=== PATIENT | female | born 1965 | race Caucasian/White ===

== ENCOUNTER → 2020-06-03 16:47 | Outpatient (CLI) | payer OTHER, MEDICAID, SELFPAY | PROVIDERS: PCP Internal Medicine; Visit Provider Registered Nurse | DX: R39.15 Urgency of urination (principal) | CPT/HCPCS: 87086 ==

== ENCOUNTER → 2020-06-03 16:59 | Outpatient (CLI) | payer OTHER, MEDICAID, SELFPAY ==
[2020-06-03 17:49] LABS: Add Manual Diff / Slide Review NO; Basophils Absolute Auto 100 /uL (0-100); Basophils Percent Auto 1.1 % (0-2); Eosinophils Absolute Auto 400 /uL (0-450); Eosinophils Percent Auto 2.9 % (2-4); Hematocrit 44.2 % (36-46); Hemoglobin 14.9 g/dL (12.0-16.0); Lymphocytes Absolute Auto 3000 /uL (1100-4500); Lymphocytes Percent Auto 23.4 % (25-40); Mean Corpuscular HGB Conc 33.8 % (30-36); Mean Corpuscular Hemoglobin 30.4 PG (26-34); Mean Corpuscular Volume 90.1 fL (80-100); Monocytes Absolute Auto 800 /uL (0-900); Monocytes Percent Auto 6.1 % (3-14); Neutrophils Absolute Auto 8600 /uL (1500-7000); Neutrophils Percent Auto 66.5 % (50-75); Platelet Count 315 X10^3/uL (150-400); Red Cell Distribution Width 13.4 % (11.6-14.8); White Blood Cell Count 12.9 X10^3/uL (4.5-11.0)
[2020-06-03 18:05] LABS: Alanine Aminotransferase 45 IU/L (<35); Albumin 4.4 g/dL (3.5-5.0); Albumin Globulin Ratio 1.2 (1.0-2.8); Alkaline Phosphatase 83 U/L (38-126); Aspartate Aminotransferase 36 IU/L (14-36); BUN Creatinine Ratio 18.8 (6-22); Bilirubin Total 0.6 mg/dL (0.2-1.3); Blood Urea Nitrogen 15 mg/dL (7-17); Calcium 10.2 mg/dL (8.4-10.2); Carbon Dioxide 26 mmol/L (22-32); Chloride 102 mmol/L (98-107); Estimated Glomerular Filt Rate > 60.0 mL/min (>60); Globulin 3.7 g/dL (1.7-4.1); Glucose 100 mg/dL (70-100); HEMOLYSIS < 15 (0-50); Potassium 4.3 mmol/L (3.4-5.1); Sodium 136 mmol/L (137-145); Total Protein 8.1 g/dL (6.3-8.2)
== END ==
PROVIDERS: PCP Registered Nurse; Referring Provider Registered Nurse; Visit Provider Registered Nurse
DX: R39.15 Urgency of urination (principal)
CPT/HCPCS: 36415; 80053; 85025; 87086

== ENCOUNTER → 2020-06-09 09:58 | Outpatient (CLI) | payer OTHER, MEDICAID, SELFPAY ==
--- NOTE | 2020-06-09 10:24 | DI.CT.S_ITS ---
PROCEDURE: CT ABDOMEN PELVIS W CON INDICATIONS: abdominal pain TECHNIQUE: After the administration of intravenous contrast, 5 mm thick sections acquired from the diaphragm to the symphysis. 5 mm coronal and sagittal reformats were acquired. For radiation dose reduction, the following was used: automated exposure control, adjustment of mA and/or kV according to patient size. COMPARISON: , , ABDOMEN COMPLETE, 09/11/2016, 21:59. FINDINGS: Image quality: Excellent. ABDOMEN: Lung bases: No focal infiltrates are seen. Calcified granulomas can be seen within the lung bases. Heart size is normal. Solid organs: Liver is normal in size and enhancement. Diffuse fatty liver infiltration is noted. Gallbladder wall is not thickened. Biliary system is non dilated. Pancreas enhances normally. Spleen is normal in size and enhancement. No adrenal nodules. Kidneys demonstrate normal size and enhancement, without hydronephrosis. Peritoneum and bowel: Bowel loops demonstrate normal wall thickness and caliber. No free fluid or air. There is a moderate amount of stool seen within the colon. Nodes and vessels: No retroperitoneal or mesenteric adenopathy by size criteria. Aorta and inferior vena cava are normal in size. Miscellaneous: A mild periumbilical hernia is seen, containing fat. PELVIS: Genitourinary: Bladder wall thickness is normal. Pelvic phleboliths are seen, which are separate from the distal ureters. This patient is status post hysterectomy. No adnexal masses are seen. Miscellaneous: No inguinal hernias or adenopathy. Bones: No suspicious bony lesions. No vertebral body compression fractures. Focal L5-S1 degenerative change is seen. Milder degenerative changes are seen elsewhere. IMPRESSION: There is a moderate amount of stool seen within the colon. Please correlate with an underlying history of constipation. Incidental note is made of: Prior granulomatous exposure. Fatty liver infiltration Fat containing periumbilical hernia Hysterectomy L5-S1 degenerative change Dictated by: Giles Messer M.D. on 06/09/2020 at 9:32 Approved by: Giles Messer M.D. on 06/09/2020 at 9:35
== END ==
PROVIDERS: PCP Registered Nurse; Referring Provider Registered Nurse; Visit Provider Registered Nurse
DX: R10.9 Unspecified abdominal pain (principal); R39.15 Urgency of urination; K76.0 Fatty (change of) liver, not elsewhere classified; K42.9 Umbilical hernia without obstruction or gangrene; M47.817 Spondylosis without myelopathy or radiculopathy, lumbosacral region; Z90.710 Acquired absence of both cervix and uterus
CPT/HCPCS: 74177; Q9967

== ENCOUNTER → 2020-06-23 10:02 | Outpatient (CLI) | payer OTHER, MEDICAID, SELFPAY ==
[2020-06-25 06:16] LABS: COVID19 Sendout Not Detected (Not Detect)
== END ==
PROVIDERS: PCP Registered Nurse; Visit Provider Physician Assistant
DX: Z11.59 Encounter for screening for other viral diseases (principal)
CPT/HCPCS: 87635

== ENCOUNTER → 2020-12-22 09:23 | Outpatient (CLI) | payer OTHER, MEDICAID, SELFPAY ==
[2020-12-22 10:22] LABS: Add Manual Diff / Slide Review NO; Basophils Absolute Auto 100 /uL (0-100); Basophils Percent Auto 0.9 % (0-2); Eosinophils Absolute Auto 300 /uL (0-450); Eosinophils Percent Auto 3.1 % (2-4); Hematocrit 43.6 % (36-46); Hemoglobin 14.7 g/dL (12.0-16.0); Lymphocytes Absolute Auto 2200 /uL (1100-4500); Lymphocytes Percent Auto 25.7 % (25-40); Mean Corpuscular HGB Conc 33.8 % (30-36); Mean Corpuscular Hemoglobin 30.4 PG (26-34); Monocytes Absolute Auto 600 /uL (0-900); Monocytes Percent Auto 7.1 % (3-14); Neutrophils Absolute Auto 5400 /uL (1500-7000); Neutrophils Percent Auto 63.2 % (50-75); Platelet Count 257 X10^3/uL (150-400); Red Blood Cell Count 4.84 X10^6/uL (4.0-5.2); Red Cell Distribution Width 13.9 % (11.6-14.8); White Blood Cell Count 8.5 X10^3/uL (4.5-11.0)
[2020-12-22 10:47] LABS: Alanine Aminotransferase 35 IU/L (<35); Albumin 4.3 g/dL (3.5-5.0); Albumin Globulin Ratio 1.3 (1.0-2.8); Alkaline Phosphatase 89 U/L (38-126); Aspartate Aminotransferase 29 IU/L (14-36); BUN Creatinine Ratio 22.5 (6-22); Bilirubin Total 0.5 mg/dL (0.2-1.3); Blood Urea Nitrogen 16 mg/dL (7-17); Calcium 9.5 mg/dL (8.4-10.2); Carbon Dioxide 26 mmol/L (22-32); Chloride 106 mmol/L (98-107); Estimated Glomerular Filt Rate > 60.0 mL/min (>60); Globulin 3.2 g/dL (1.7-4.1); Glucose 139 mg/dL (70-100); HDL Cholesterol 44 mg/dL (40-60); HEMOLYSIS 21 (0-50); Potassium 4.5 mmol/L (3.4-5.1); Sodium 137 mmol/L (137-145); Total Protein 7.5 g/dL (6.3-8.2); Triglycerides 395 mg/dL (35-150)
[2020-12-22 10:58] LABS: Cholesterol 353 mg/dL (140-199); LDL Cholesterol Calculated 230 mg/dL (<100)
[2020-12-22 11:09] LABS: Thyroid Stimulating Hormone 4.15 uIU/mL (0.47-4.68)
== END ==
PROVIDERS: PCP Acupuncturist; Referring Provider Acupuncturist; Visit Provider Acupuncturist
DX: Z00.00 Encounter for general adult medical examination without abnormal findings (principal); R53.83 Other fatigue
CPT/HCPCS: 36415; 80053; 80061; 84443; 85025

== ENCOUNTER → 2021-01-06 08:49 | Outpatient (CLI) | payer OTHER, MEDICAID, SELFPAY ==
--- NOTE | 2021-01-06 | DI.MG.S_ITS ---
BILATERAL DIGITAL DIAGNOSTIC MAMMOGRAM 3D/2D: 01/06/2021 CLINICAL: Bilateral breast pain and lumps. Comparison is made to exams dated: 10/31/2017 ultrasound, 04/28/2017 ultrasound, 04/21/2017 mammogram - [facility], and 04/08/2017 mammogram - [facility]. There are scattered fibroglandular elements in both breasts. No significant masses, calcifications, or other findings are seen in either breast. Specifically, no finding to explain the patient's bilateral diffuse and focal areas of pain. IMPRESSION: INCOMPLETE: NEEDS ADDITIONAL IMAGING EVALUATION There is no abnormality seen in either breast to correspond with the diffuse pain. There is no abnormality seen in the right breast to correspond with the pain at 3 o'clock. There is no abnormality seen in the left breast to correspond with the pain in the lower outer quadrant. Bilateral breast ultrasound is recommended for full evaluation of these areas. This was performed immediately following this exam. This exam was interpreted at Station ID: [id number]. NOTE: For mammograms, a report in lay terms will be sent to the patient. Approximately 15% of breast malignancies will not be visualized mammographically. In the management of a palpable breast mass, a negative mammogram must not discourage biopsy of a clinically suspicious lesion. Electronically Signed By: Pamela givens/:01/06/2021 09:48:27 ACR BI-RADS Category 0: Incomplete [id number]
--- NOTE | 2021-01-06 10:41 | DI.US.S_ITS ---
Date: 01/06/2021 10:41 At the request of: LILI ARMANDO Procedure: US breast RT limited ULTRASOUND OF RIGHT BREAST: 01/06/2021 CLINICAL: Patient returns today to evaluate a focal asymmetry in the right breast and right breast pain. Comparison is made to exams dated: 01/06/2021 mammogram, 10/31/2017 ultrasound, 04/28/2017 ultrasound, 04/21/2017 mammogram - [facility], and 04/08/2017 mammogram - [facility]. Color flow ultrasound of the right breast was performed. Sexton scale images of the real-time examination were reviewed. There is a 0.5 cm x 0.3 cm x 0.2 cm irregular cluster of microcysts in the right breast at 6 o'clock posterior depth 6 cm from the nipple. These abnormalities are not significantly changed over 3 years. Color flow imaging demonstrates that there is no vascularity present. There also is a 3 mm cyst in the right breast at 3 o'clock anterior depth. This cyst is hypoechoic. This is in the area of pain, but likely correlates as an incidental finding only. Color flow imaging demonstrates that there is no vascularity present. IMPRESSION: BENIGN There is no sonographic evidence of malignancy. The 0.5 cm cluster of microcysts in the right breast at 6 o'clock posterior depth has shown moth exterminator stability and therefore is benign. The 3 mm incidental cyst in the right breast at 3 o'clock appears benign. Return to annual right breast mammogram screening schedule is recommended. Findings and recommendations were conveyed to the patient at time of exam. This exam was interpreted at Station ID: [id number]. Electronically Signed By: Pamela givens/:01/06/2021 13:49:36 letter sent: Normal Exam Ultrasound BI-RADS: 2 Benign
--- NOTE | 2021-01-06 10:42 | DI.US.S_ITS ---
Date: 01/06/2021 10:42 At the request of: LILI ROBERTS Procedure: US breast LT limited LIMITED ULTRASOUND OF LEFT BREAST: 01/06/2021 CLINICAL: Focal left breast pain. Comparison is made to exams dated: 01/06/2021 mammogram, 04/21/2017 mammogram - [facility], and 04/08/2017 mammogram - [facility]. Color flow ultrasound of the left breast was performed. Sexton scale images of the real-time examination were reviewed. There is a 4 mm cluster of irregular microcysts in the left breast at 7 o'clock middle depth. This correlates as an incidental finding. There are related micro calcifications. Color flow imaging demonstrates that there is no vascularity present. There also is a 0.5 cm x 0.7 cm x 0.5 cm round cluster of microcysts in the left breast at 9 o'clock anterior depth 3 cm from the nipple. This cluster of round micro cysts is hypoechoic. Color flow imaging demonstrates that there is no vascularity present. No other findings that would explain the patient's inner lower quadrant breast pain. IMPRESSION: PROBABLY BENIGN The 4 mm cluster of microcysts in the left breast at 7 o'clock middle depth is probably benign. The 0.7 cm cluster of microcysts in the left breast at 9 o'clock anterior depth is probably benign. A follow-up left ultrasound in 6 months is recommended to demonstrate stability. Findings and recommendations were conveyed to the patient at time of exam. This exam was interpreted at Station ID: [id number]. Electronically Signed By: Pamela givens/:01/06/2021 13:55:08 letter sent: Followup Recommended Ultrasound BI-RADS: 3 Probably benign
== END ==
PROVIDERS: PCP Acupuncturist; Referring Provider Naturopath; Visit Provider Naturopath
DX: R92.8 Other abnormal and inconclusive findings on diagnostic imaging of breast (principal); N64.4 Mastodynia; N60.12 Diffuse cystic mastopathy of left breast; N60.11 Diffuse cystic mastopathy of right breast
CPT/HCPCS: 76642; 77066; G0279

== ENCOUNTER 2021-05-10 14:15 | Emergency (ER) | payer OTHER, MEDICAID, SELFPAY ==
[2021-05-10 14:25] VITALS: BP 144/105; PULSE 122; RESP 18; TEMP 36.8; O2SAT 98; BMI 33.4
--- NOTE | 2021-05-10 14:57 | ED_ITS ---
HPI - General Adult General Chief complaint: Abdominal Pain Stated complaint: SEVERE PELVIC/LOW BACK PAIN Time Seen by Provider: 05/10/21 14:35 Source: patient Mode of arrival: Ambulatory History of Present Illness HPI narrative: Patient is a 55-year-old female here for evaluation of bilateral lower abdominal discomfort. States that it started a couple days ago. She was sitting on the couch when it started it was a gradual onset but it is now worsened since that. No urinary symptoms. No change in bowel habits. Has had a total hysterectomy to include her ovaries. Has had severe nausea but no vomiting. Never any pain like this in the past. Took some Tylenol and Flexeril last evening without any improvement. She now states that is radiating to her lower back. Related Data Home Medications Medication Instructions Recorded Confirmed diphenhydramine HCl 25 mg capsule 25 mg PO BEDTIME 06/03/20 06/12/20 (NightTime Sleep Aid (diphenhydramine)) nutritional supplement-fiber oral each PO 06/03/20 06/12/20 liquid Previous Rx's Medication Instructions Recorded ondansetron 4 mg disintegrating 4 mg PO Q6H PRN #14 tab 05/10/21 tablet oxycodone-acetaminophen 5 mg-325 1 tab PO Q4-6H PRN #10 tab 05/10/21 mg tablet Allergies Allergy/AdvReac Type Severity Reaction Status Date / Time latex [LATEX] Allergy Intermediate RASH Verified 05/10/21 14:29 codeine [CODEINE] AdvReac Intermediate ABD PAIN Verified 05/10/21 14:29 acetaminophen [From VICODIN] AdvReac Mild NAUSEA Verified 05/10/21 14:29 hydrocodone [From VICODIN] AdvReac Mild NAUSEA Verified 05/10/21 14:29 Review of Systems Constitutional Comments: No fevers ENT Ears, Nose, Mouth, and Throat: Reports system reviewed and no additional complaints, except as documented Cardiovascular Comments: No chest pain Respiratory Comments: No shortness of breath Gastrointestinal Gastrointestinal: Reports as per HPI Genitourinary Comments: No urinary symptoms Musculoskeletal Comments: Back pain Integumentary/Breasts Comments: No rashes Neurologic Neurologic: Reports system reviewed and no additional complaints, except as documented Psychiatric Psychiatric: Reports system reviewed and no additional complaints, except as documented Endocrine Endocrine: Reports system reviewed and no additional complaints, except as documented Hematologic/Lymphatic On Anticoagulants: No Allergic/Immunologic Allergic/Immunologic: Reports system reviewed and no additional complaints, except as documented Patient History Medical History (Updated 05/10/21 @ 17:51 by Abilio Sue DO) Cervical spine disease (~1985) Chicken pox (~1998) Chronic back pain (~1985) Headache (~2011) Irregular menstrual cycle (~2015) Measles (~1969) MRSA (methicillin resistant Staphylococcus aureus) (~2003) Musculoskeletal disorder (~2011) Shoulder pain (~2011) Skin problem (~2011) Vision disorder Surgical History Anesthesia History of carpal tunnel release (~1985) History of carpal tunnel repair History of tonsillectomy Ovarian cyst (~1997) Status post bilateral salpingo-oophorectomy (BSO) (07/18/17) Status post cervical spinal fusion (~2012) Status post laparoscopic supracervical hysterectomy (07/18/17) Family History Father Heart disease Hypertension High cholesterol Stroke Mother Cancer Diabetes mellitus Family/Other Thyroid disease Grandfather No problems noted. Grandmother No problems noted. Grandfather No problems noted. Grandmother No problems noted. Sister Pacemaker Social History pets and animals: Yes education level: college occupational status: employed seatbelt use: always helmet use: Yes water heater temp set < 120 deg: Yes working smoke detector in home: Yes fire extinguisher in home: Yes carbon monox detector in home: Yes firearms in home: Yes firearms unloaded and locked: Yes Smoking Status: Current every day smoker alcohol intake: current substance use type: does not use during the past year weight has: other well-balanced diet: daily or most days daily servings fruits/ve-4 caffeine: Yes (1-2 caffeine drinks per day) eating out: other frequency: 5-6 times per week duration: 30-45 minutes/day Smoking Status: Current every day smoker tobacco type: cigarettes alcohol intake frequency: a few times a week Substance Use Type: does not use Exam Initial Vital Signs Initial Vital Signs: Vital Signs Temperature 98.2 F 05/10/21 14:25 Pulse Rate 122 H 05/10/21 14:25 Respiratory Rate 18 05/10/21 14:25 Blood Pressure 144/105 H 05/10/21 14:25 Pulse Oximetry 98 05/10/21 14:25 Const General: cooperative and healthy appearing HENMD Head: normal to inspection and normocephalic Eyes General: appearance normal, both eyes and all related structures Resp Effort & Inspection: normal respiratory effort Auscultation: clear to auscultation bilaterally Cardio Rate: regular rate Rhythm: regular rhythm GI Inspection: normal to inspection Skin General: no rashes or lesions noted Neuro General: patient alert, patient awake, patient oriented x3 and moves all extremities Extrem General: normal to inspection and capillary refill normal Psych Appearance: grossly normal and well kempt Course Orders Ordered: ED Orders 05/10/21 14:54 Urine Microscopic Stat 05/10/21 14:58 CT abdomen pelvis w con Stat 05/10/21 15:25 Complete Blood Count AUTO DIFF Stat Comprehensive Metabolic Panel Stat Lipase Stat Discontinued Medications Sodium Chloride (Normal Saline 0.9%) 1,000 mls @ 1,000 mls/hr IV BOLUS ONE Stop: 05/10/21 15:34 Last Infusion: 05/10/21 16:37 Dose: 0 mls/hr Documented by: Admin: 05/10/21 15:13 Dose: 1,000 mls/hr Documented by: HU Morphine Sulfate (Morphine 4 Mg/Ml Inj) 4 mg IV NOW ONE Stop: 05/10/21 14:58 Last Admin: 05/10/21 15:13 Dose: 4 mg Documented by: HU Morphine Sulfate (Morphine 4 Mg/Ml Inj) 4 mg IV NOW ONE Stop: 05/10/21 16:37 Last Admin: 05/10/21 16:43 Dose: 4 mg Documented by: HU Ondansetron HCl (Ondansetron 4 Mg/2 Ml Inj) 4 mg IV NOW ONE Stop: 05/10/21 14:58 Last Admin: 05/10/21 15:13 Dose: 4 mg Documented by: HU Ondansetron HCl (Ondansetron 4 Mg Odt Prepack) 1 bottle MISC SEEINSTR ONE Stop: 05/10/21 17:34 Oxycodone/Acetaminophen (Oxycodone/Apap 5/325 Prepack) 1 bottle MISC SEEINSTR ONE Stop: 05/10/21 17:34 Vital Signs Vital signs: Vital Signs - 8 hr 05/10/21 14:25 05/10/21 15:46 05/10/21 16:09 Temperature 98.2 F Pulse Rate 122 H 88 86 Respiratory Rate 18 18 Blood Pressure 144/105 H 155/92 H Pulse Oximetry 98 97 99 05/10/21 16:30 Temperature Pulse Rate 84 Respiratory Rate Blood Pressure Pulse Oximetry 99 Medical Decision Making Lab Data Lab results reviewed: Yes I reviewed the patient's lab results. Result diagrams: 05/10/21 15:25 05/10/21 15:25 Labs: Lab Results 05/10/21 05/10/21 05/10/21 Range/Units 14:54 15:25 15:25 WBC 16.5 H (4.5-11.0) X10^3/uL RBC 4.93 (4.0-5.2) X10^6/uL Hgb 14.8 (12.0-16.0) g/dL Hct 44.7 (36-46) % MCV 90.8 (80-100) fL MCH 30.1 (26-34) PG MCHC 33.1 (30-36) % RDW 13.4 (11.6-14.8) % Plt Count 272 (150-400) X10^3/uL Neut % (Auto) 76.6 H (50-75) % Lymph % (Auto) 14.9 L (25-40) % [place] % (Auto) 7.0 (3-14) % Eos % (Auto) 0.9 L (2-4) % Baso % (Auto) 0.6 (0-2) % Neut # (Auto) 18288 H (4555-9942) /uL Lymph # (Auto) 2500 (1477-0221) /uL [place] # (Auto) 1200 H (0-900) /uL Eos # (Auto) 100 (0-450) /uL Baso # (Auto) 100 (0-100) /uL Sodium 139 (137-145) mmol/L Potassium 4.5 (3.4-5.1) mmol/L Chloride 104 (98-107) mmol/L Carbon Dioxide 28 (22-32) mmol/L BUN 16 (7-17) mg/dL Creatinine 0.92 (0.52-1.04) mg/dL Estimated GFR > 60.0 (>60) mL/min BUN/Creatinine Ratio 17.4 (6-22) Glucose 113 H (70-100) mg/dL Calcium 9.9 (8.4-10.2) mg/dL Total Bilirubin 0.5 (0.2-1.3) mg/dL AST 30 (14-36) IU/L ALT 32 (<35) IU/L Alkaline Phosphatase 108 (38-126) U/L Total Protein 8.0 (6.3-8.2) g/dL Albumin 4.4 (3.5-5.0) g/dL Globulin 3.6 (1.7-4.1) g/dL Albumin/Globulin Ratio 1.2 (1.0-2.8) Lipase 127 (23-300) U/L Urine RBC None seen (0-5/HPF) Urine WBC 0-1/hpf (0-5/HPF) Ur Squamous Epith Cells 0-1 /hpf (0-5/HPF) Urine Bacteria None seen (None) Ur Culture Indicated? Cult not indicated Urine Dip Bedside Urine Glucose Negative Bedside Urine Bilirubin - Negative Bedside Urine Ketone - Negative Urine Specific [place] 1.010 Bedside Urine Occult Blood - Negative Bedside Urine pH 6.0 Bedside Urine Protein +/- 15 Bedside Urine Urobilinogen - Negative Bedside Urine Nitrite - Negative Bedside Urine Leukocytes - Negative Esterase Point of care testing: Urine Dip Bedside Urine Glucose Negative Bedside Urine Bilirubin - Negative Bedside Urine Ketone - Negative Urine Specific [place] 1.010 Bedside Urine Occult Blood - Negative Bedside Urine pH 6.0 Bedside Urine Protein +/- 15 Bedside Urine Urobilinogen - Negative Bedside Urine Nitrite - Negative Bedside Urine Leukocytes - Negative Esterase Imaging Data CT scan - abdomen/pelvis: Radiologist's Impression: [address] [id number] Scan ReportSigned Patient: Ro Valentino PMR#: [id number]: 1965Acct:[id number]/Sex: 55 / FDate of Service: 05/10/21Loc: EDAccession Number: [id number] Procedure: CT abdomen pelvis w con Ordering Provider: Abilio Sue D.O. PROCEDURE: CT ABDOMEN PELVIS W CON INDICATIONS: Bilateral lower abdominal pain TECHNIQUE: After the administration of intravenous contrast, axial sections acquired from the lung bases to the pubic symphysis. Coronal and sagittal reformats were performed. For radiation dose reduction, the following was used: automated exposure control, adjustment of mA and/or kV according to patient size. COMPARISON: [facility], CT, CT ABDOMEN PELVIS W CON, 06/09/2020, 10:05. FINDINGS: Lower thorax: The lung bases are clear. Heart size normal. No hiatal hernia. Calcified granulomas noted in both lung bases, stable from the prior exam. Liver: The liver is diffusely decreased in attenuation without focal mass lesion. Biliary system: No calcified cholelithiasis or pericholecystic inflammation. No intra or extrahepatic bile duct dilatation. Pancreas: Unremarkable without mass or inflammation evident. Spleen: Normal in size and density. Adrenals: Normal morphology and density. Reproductive system: Hysterectomy. Urinary system: Normal renal size and attenuation. No renal calculi, hydronephrosis, or solid mass present. Urinary bladder unremarkable. Gastrointestinal system: The bowel appears unremarkable with no evidence of bowel obstruction or inflammation. The stomach appears unremarkable. Appendix: Normal appendix identified. No evidence of appendicitis. Peritoneal spaces: No mesenteric or retroperitoneal adenopathy. No free air. No free fluid. Vasculature: The IVC, aorta and iliac vasculature are unremarkable. Musculoskeletal: Normal bone mineralization. No acute fractures. Small umbilical hernia noted containing fat without bowel involvement, stable from prior. L5-S1 degenerative disc space narrowing with vacuum disc phenomena and bilateral moderate severe foraminal stenosis. IMPRESSION: No acute CT abdomen or pelvis findings. Chronic findings include hepatic fatty infiltration, pulmonary calcified granulomas, and degenerative disc disease Dictated by: Gibson Oquendo M.D. on 05/10/2021 at 15:41 Approved by: Gibson Oquendo M.D. on 05/10/2021 at 15:46 [facility] Narrative Medical decision making narrative: Patient does have leukocytosis however the rest of her labs are unremarkable. The CT scan of her abdomen shows no acute pathology. She has had a complete hysterectomy along with her ovaries so I feel that we can hold on a ultrasound for now. She has no skin changes over the area concerning for cellulitis. I have low suspicion for septic joint. Low suspicion for spinal abscess given her presentation. She has had no recent ins trumentation. I feel that we should hold on further workup for now. Will attempt to treat her symptoms. She was informed of the lack of exact etiology and she expressed understanding of this. She was given return precautions and follow-up instructions. She expressed understanding and agreement. Discharge Plan Departure Patient Disposition: Home Clinical Impression: Pelvic pain, Nausea Instructions: DI for Nausea -- Adult, DI for Pelvic Pain Activity Restrictions/Additional Instructions: There is no sign of any infection. Your CT scan did not show any signs of acute issues. Plan will be is to try to control your symptoms for the next couple days. If your symptoms change or worsen please return to the emergency department. If they do not improve contact her primary doctor is you may need further evaluation or referral to see Gastroenterology. Prescriptions: New oxycodone-acetaminophen 5-325 mg tablet 1 tab PO Q4-6H PRN (Reason: pain) Qty: 10 RF: 0 ondansetron 4 mg tablet,disintegrating 4 mg PO Q6H PRN (Reason: nausea and vomiting) Qty: 14 RF: 0 No Action nutritional supplement-fiber Liquid PO RF: 0 diphenhydramine HCl [NightTime Sleep Aid (diphen)] 25 mg capsule 25 mg PO BEDTIME RF: 0 Referrals: Sarahi Brown ND [Primary Care Provider] -
[2021-05-10 15:08] LABS: Bacteria Urine None Seen; RBC Urine None Seen (0-5/HPF)
[2021-05-10] MEDS: SODIUM CHLORIDE 0.9% 1,000 ML 1000 ML IV (15:13)
[2021-05-10] MEDS: MORPHINE 4 MG/ML INJ IV ×2 (15:13→16:43)
[2021-05-10] MEDS: ONDANSETRON 4 MG/2 ML INJ IV (15:13)
[2021-05-10 15:26] LABS: Culture Indicated Urine Cult Not Indicated; Squamous Epithelial Cell Urine 0-1 /HPF (0-5/HPF); WBC Urine 0-1/HPF (0-5/HPF)
[2021-05-10 15:34] LABS: Add Manual Diff / Slide Review NO; Basophils Absolute Auto 100 /uL (0-100); Basophils Percent Auto 0.6 % (0-2); Eosinophils Absolute Auto 100 /uL (0-450); Eosinophils Percent Auto 0.9 % (2-4); Hematocrit 44.7 % (36-46); Hemoglobin 14.8 g/dL (12.0-16.0); Lymphocytes Absolute Auto 2500 /uL (1100-4500); Lymphocytes Percent Auto 14.9 % (25-40); Mean Corpuscular HGB Conc 33.1 % (30-36); Mean Corpuscular Hemoglobin 30.1 PG (26-34); Mean Corpuscular Volume 90.8 fL (80-100); Monocytes Absolute Auto 1200 /uL (0-900); Neutrophils Absolute Auto 12700 /uL (1500-7000); Neutrophils Percent Auto 76.6 % (50-75); Platelet Count 272 X10^3/uL (150-400); Red Blood Cell Count 4.93 X10^6/uL (4.0-5.2); Red Cell Distribution Width 13.4 % (11.6-14.8); White Blood Cell Count 16.5 X10^3/uL (4.5-11.0)
[2021-05-10 15:43] LABS: Alanine Aminotransferase 32 IU/L (<35); Albumin 4.4 g/dL (3.5-5.0); Albumin Globulin Ratio 1.2 (1.0-2.8); Alkaline Phosphatase 108 U/L (38-126); Aspartate Aminotransferase 30 IU/L (14-36); BUN Creatinine Ratio 17.4 (6-22); Bilirubin Total 0.5 mg/dL (0.2-1.3); Blood Urea Nitrogen 16 mg/dL (7-17); Calcium 9.9 mg/dL (8.4-10.2); Carbon Dioxide 28 mmol/L (22-32); Chloride 104 mmol/L (98-107); Estimated Glomerular Filt Rate > 60.0 mL/min (>60); Globulin 3.6 g/dL (1.7-4.1); Glucose 113 mg/dL (70-100); HEMOLYSIS 16 (0-50); Lipase 127 U/L (23-300); Potassium 4.5 mmol/L (3.4-5.1); Sodium 139 mmol/L (137-145)
[2021-05-10 15:46] VITALS: BP 155/92; PULSE 88; RESP 18; O2SAT 97
[2021-05-10 16:09] VITALS: PULSE 86; O2SAT 99
[2021-05-10 16:30] VITALS: PULSE 84; O2SAT 99
[2021-05-10 17:00] VITALS: PULSE 85; O2SAT 98
[2021-05-10 17:30] VITALS: BP 152/90; PULSE 85; O2SAT 97
[2021-05-10] MEDS: ONDANSETRON 4 MG ODT PREPACK 1 BOTTLE MISC (18:04)
[2021-05-10] MEDS: OXYCODONE/APAP 5/325 PREPACK 1 BOTTLE MISC (18:04)
== END 2021-05-10 18:05 | disposition home or self-care (01) ==
PROVIDERS: Emergency Provider Emergency Medicine; PCP Acupuncturist
DX: R10.2 Pelvic and perineal pain (principal); R11.0 Nausea; M54.5 Low back pain
CPT/HCPCS: 36415; 74177; 80053; 81003; 81015; 83690; 85025; 96361; 96374; 96375; 96376; 99283; 99284; J2270; J2405; Q9967

== ENCOUNTER → 2021-06-12 10:33 | Outpatient (CLI) | payer OTHER, MEDICAID, SELFPAY ==
[2021-06-12 11:50] LABS: Add Manual Diff / Slide Review NO; Eosinophils Absolute Auto 200 /uL (0-450); Hemoglobin 13.8 g/dL (12.0-16.0); Monocytes Absolute Auto 600 /uL (0-900); Neutrophils Absolute Auto 4400 /uL (1500-7000); White Blood Cell Count 7.2 X10^3/uL (4.5-11.0)
[2021-06-12 11:54] LABS: Cholesterol 213 mg/dL (140-199); HDL Cholesterol 42 mg/dL (40-60); LDL Cholesterol Calculated 138 mg/dL (<100); Triglycerides 167 mg/dL (35-150)
[2021-06-12 11:57] LABS: Basophils Absolute Auto 100 /uL (0-100); Basophils Percent Auto 0.9 % (0-2); Eosinophils Percent Auto 3.1 % (2-4); Hematocrit 40.9 % (36-46); Lymphocytes Absolute Auto 1900 /uL (1100-4500); Lymphocytes Percent Auto 26.9 % (25-40); Mean Corpuscular HGB Conc 33.8 % (30-36); Mean Corpuscular Hemoglobin 30.7 PG (26-34); Mean Corpuscular Volume 90.8 fL (80-100); Monocytes Percent Auto 7.8 % (3-14); Neutrophils Percent Auto 61.3 % (50-75); Platelet Count 263 X10^3/uL (150-400)
== END ==
PROVIDERS: PCP Acupuncturist; Referring Provider Naturopath; Visit Provider Naturopath
DX: E78.5 Hyperlipidemia, unspecified (principal)
CPT/HCPCS: 36415; 80061; 85025

== ENCOUNTER → 2021-11-12 11:19 | Outpatient (CLI) | payer OTHER, MEDICAID, SELFPAY ==
--- NOTE | 2021-11-12 | DI.RAD.S_ITS ---
PROCEDURE: XR CHEST 2V INDICATIONS: COUGH AND SHORTNESS OF BREATH TECHNIQUE: 2 views of the chest were acquired. COMPARISON: None. FINDINGS: Surgical changes and devices: None. Lungs and pleura: Lungs are clear. No pleural effusions or pneumothorax. Mediastinum: Mediastinal contours are normal. Heart size is normal. Bones and chest wall: No suspicious bony abnormalities. Soft tissues appear unremarkable. IMPRESSION: No acute pulmonary process. Dictated by: Layne Armenta M.D. on 11/12/2021 at 20:15 Approved by: Layne Armenta M.D. on 11/12/2021 at 20:15
== END ==
PROVIDERS: PCP Acupuncturist; Referring Provider Acupuncturist; Visit Provider Acupuncturist
DX: R05.9 Cough, unspecified (principal); R06.00 Dyspnea, unspecified
CPT/HCPCS: 71046

== ENCOUNTER → 2022-02-09 07:55 | Outpatient (CLI) | payer OTHER, MEDICAID, SELFPAY ==
[2022-02-09 09:57] LABS: Add Manual Diff / Slide Review NO; Basophils Absolute Auto 100 /uL (0-100); Basophils Percent Auto 0.7 % (0-2); Eosinophils Absolute Auto 200 /uL (0-450); Eosinophils Percent Auto 2.7 % (2-4); Hemoglobin 14.2 g/dL (12.0-16.0); Lymphocytes Absolute Auto 1800 /uL (1100-4500); Lymphocytes Percent Auto 23.2 % (25-40); Mean Corpuscular HGB Conc 34.5 % (30-36); Mean Corpuscular Hemoglobin 30.9 PG (26-34); Mean Corpuscular Volume 89.7 fL (80-100); Monocytes Absolute Auto 500 /uL (0-900); Neutrophils Absolute Auto 5100 /uL (1500-7000); Neutrophils Percent Auto 66.4 % (50-75); Platelet Count 251 X10^3/uL (150-400); Red Blood Cell Count 4.58 X10^6/uL (4.0-5.2); Red Cell Distribution Width 13.7 % (11.6-14.8); White Blood Cell Count 7.7 X10^3/uL (4.5-11.0)
[2022-02-09 10:17] LABS: Alanine Aminotransferase 35 IU/L (<35); Albumin 4.3 g/dL (3.5-5.0); Albumin Globulin Ratio 1.4 (1.0-2.8); Alkaline Phosphatase 84 U/L (38-126); Aspartate Aminotransferase 28 IU/L (14-36); BUN Creatinine Ratio 21.4 (6-22); Bilirubin Total 0.3 mg/dL (0.2-1.3); Blood Urea Nitrogen 18 mg/dL (7-17); Calcium 9.4 mg/dL (8.4-10.2); Carbon Dioxide 26 mmol/L (22-32); Chloride 110 mmol/L (98-107); Cholesterol 291 mg/dL (140-199); Estimated Glomerular Filt Rate > 60 mL/min (>60); Glucose 126 mg/dL (70-100); HDL Cholesterol 47 mg/dL (40-60); HEMOLYSIS < 15 (0-50); LDL Cholesterol Calculated 187 mg/dL (<100); Potassium 4.6 mmol/L (3.4-5.1); Sodium 144 mmol/L (137-145); Total Protein 7.3 g/dL (6.3-8.2); Triglycerides 285 mg/dL (35-150)
[2022-02-09 10:49] LABS: Ferritin 86 ng/mL (11-264)
[2022-02-09 10:50] LABS: Thyroid Stimulating Hormone 3.16 uIU/mL (0.47-4.68)
[2022-02-10 07:57] LABS: EBV Ab VCA, IgG >600.0 U/mL (0.0-17.9); EBV Early Antigen AB,IgG <9.0 U/mL (0.0-8.9)
== END ==
PROVIDERS: PCP Acupuncturist; Referring Provider Acupuncturist; Visit Provider Acupuncturist
DX: Z00.00 Encounter for general adult medical examination without abnormal findings (principal); R53.83 Other fatigue; I10 Essential (primary) hypertension
CPT/HCPCS: 36415; 80053; 80061; 82728; 84443; 85025; 86663; 86665

== ENCOUNTER 2023-01-05 17:54 | Observation (INO) | payer OTHER, MEDICAID, SELFPAY ==
[2023-01-05] VITALS (13 sets, daily range): BP systolic 110–175; BP diastolic 78–110; PULSE 69–93; RESP 15–35; TEMP 36.6; O2SAT 95–99; BMI 41.6
--- NOTE | 2023-01-05 18:03 | DI.RAD.S_ITS ---
PROCEDURE: XR CHEST 1V INDICATIONS: chest pain TECHNIQUE: One view of the chest was acquired. COMPARISON: [facility], CR, XR CHEST 2V, 11/12/2021, 12:39. FINDINGS: Surgical changes and devices: None. Lungs and pleura: Lungs are clear. No pleural effusions or pneumothorax. Mediastinum: Mediastinal contours appear normal. Heart size is normal. Bones and chest wall: No suspicious bony lesions. Overlying soft tissues appear unremarkable. IMPRESSION: No acute process. Dictated by: Evelin Seymour M.D. on 01/05/2023 at 18:15 Approved by: Evelin Seymour M.D. on 01/05/2023 at 18:15
[2023-01-05 18:31] LABS: Add Manual Diff / Slide Review NO; Basophils Absolute Auto 100 /uL (0-100); Basophils Percent Auto 0.9 % (0-2); Eosinophils Absolute Auto 200 /uL (0-450); Eosinophils Percent Auto 1.8 % (2-4); Hematocrit 46.7 % (36-46); Hemoglobin 15.9 g/dL (12.0-16.0); Lymphocytes Absolute Auto 2100 /uL (1100-4500); Lymphocytes Percent Auto 21.9 % (25-40); Mean Corpuscular HGB Conc 34.1 % (30-36); Mean Corpuscular Hemoglobin 30.5 PG (26-34); Mean Corpuscular Volume 89.5 fL (80-100); Monocytes Absolute Auto 600 /uL (0-900); Neutrophils Absolute Auto 6700 /uL (1500-7000); Neutrophils Percent Auto 69.4 % (50-75); Platelet Count 265 X10^3/uL (150-400); Red Blood Cell Count 5.22 X10^6/uL (4.0-5.2); Red Cell Distribution Width 14.1 % (11.6-14.8); White Blood Cell Count 9.7 X10^3/uL (4.5-11.0)
[2023-01-05 18:33] LABS: INR 1.1 (0.9-1.3); Prothrombin Time 12.4 SECONDS (10.1-12.7)
[2023-01-05 18:36] LABS: PTT Partial Thromboplastin Tim 35 SECONDS (26-36)
[2023-01-05 18:37] LABS: Alanine Aminotransferase 63 IU/L (<35); Albumin 4.6 g/dL (3.5-5.0); Albumin Globulin Ratio 1.3 (1.0-2.8); Alkaline Phosphatase 94 U/L (38-126); Aspartate Aminotransferase 40 IU/L (14-36); BUN Creatinine Ratio 17.1 (6-22); Bilirubin Total 0.7 mg/dL (0.2-1.3); Blood Urea Nitrogen 13 mg/dL (7-17); Calcium 9.1 mg/dL (8.4-10.2); Carbon Dioxide 25 mmol/L (22-32); Chloride 106 mmol/L (98-107); Creatine Kinase 123 U/L (30-135); Estimated Glomerular Filt Rate > 60 mL/min (>60); Globulin 3.6 g/dL (1.7-4.1); Glucose 126 mg/dL (70-100); HEMOLYSIS < 15 (0-50); Lipase 149 U/L (23-300); Magnesium 1.9 mg/dL (1.6-2.3); Potassium 3.8 mmol/L (3.4-5.1); Sodium 139 mmol/L (137-145); Total Protein 8.2 g/dL (6.3-8.2)
[2023-01-05 18:52] LABS: CKMB % Relative Index 1.5 % (1.5-5.0); Creatine Kinase MB 1.86 ng/mL (<2.37)
[2023-01-05 19:20] LABS: Troponin I < 0.012 ng/mL (0.01-0.034)
--- NOTE | 2023-01-05 19:25 | ED_ITS ---
HPI - Chest Pain General Chief Complaint: Chest Pain Stated Complaint: chest pains, high blood pressure Time Seen by Provider: 01/05/23 18:59 Mode of arrival: Family Vehicle History of Present Illness HPI narrative: Patient is a 57-year-old female history of smoking hypertension, presenting today with chest pain. 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 She had to get off the phone lasted for 5-10 minutes and slowly let up. During that time she was diaphoretic nauseous, and felt like she could not breathe afterwards she developed a headache. She reports that the pain went straight through to her back. She was not eating. She reports that her dad had massive FL before the age of 60. She has not had any recurrence of pain or discomfort. She reports that she has been having multiple bouts of acid reflux she takes Tums and it goes away she says this feels completely different she is not eaten recently. Related Data Home Medications Medication Instructions Recorded Confirmed No Known Home Medications 01/06/23 01/06/23 Allergies Allergy/AdvReac Type Severity Reaction Status Date / Time latex [LATEX] Allergy Intermediate RASH Verified 01/05/23 18:05 codeine [CODEINE] AdvReac Intermediate ABD PAIN Verified 01/05/23 18:05 acetaminophen [From VICODIN] AdvReac Mild NAUSEA Verified 01/05/23 18:05 hydrocodone [From VICODIN] AdvReac Mild NAUSEA Verified 01/05/23 18:05 Review of Systems Review of Systems ROS Unobtainable: All systems reviewed & are unremarkable except as noted in HPI and below Patient History Medical History (Updated 01/06/23 @ 00:57 by Gisella Mazariegos DO) Cervical spine disease (~1985) Chicken pox (~1998) Chronic back pain (~1985) Headache (~2011) Irregular menstrual cycle (~2015) Measles (~1969) MRSA (methicillin resistant Staphylococcus aureus) (~2003) Musculoskeletal disorder (~2011) Shoulder pain (~2011) Skin problem (~2011) Vision disorder Surgical History Anesthesia History of carpal tunnel release (~1985) History of carpal tunnel repair History of tonsillectomy Ovarian cyst (~1997) Status post bilateral salpingo-oophorectomy (BSO) (07/18/17) Status post cervical spinal fusion (~2012) Status post laparoscopic supracervical hysterectomy (07/18/17) Family History Father Heart disease Hypertension High cholesterol Stroke Mother Cancer Diabetes mellitus Family/Other Thyroid disease Grandfather No problems noted. Grandmother No problems noted. Grandfather No problems noted. Grandmother No problems noted. Sister Pacemaker Social History household members: none pets and animals: Yes education level: college occupational status: employed seatbelt use: always helmet use: Yes water heater temp set < 120 deg: Yes working smoke detector in home: Yes fire extinguisher in home: Yes carbon monox detector in home: Yes firearms in home: Yes firearms unloaded and locked: Yes Smoking Status: Current every day smoker alcohol intake: current substance use type: does not use during the past year weight has: other well-balanced diet: daily or most days daily servings fruits/ve-4 caffeine: Yes (1-2 caffeine drinks per day) eating out: other frequency: 5-6 times per week duration: 30-45 minutes/day Smoking Status: Current every day smoker tobacco type: cigarettes alcohol intake frequency: a few times a week Substance Use Type: does not use Exam Initial Vital Signs Initial Vital Signs: Vital Signs Temperature 97.8 F 01/05/23 18:03 Pulse Rate 93 H 01/05/23 18:03 Respiratory Rate 18 01/05/23 18:03 Blood Pressure 175/110 H 01/05/23 18:03 Pulse Oximetry 99 01/05/23 18:03 Oxygen Delivery Method Room Air 01/05/23 18:03 GENERAL: Alert pleasant 57-year-old female appears comfortable and in no acute distress. HEENT: Head atraumatic,EOMI, pupils reactive, face symmetric, moist mucous membranes CARDIOVASCULAR: Regular rate and rhythm without murmurs, rubs or gallops. RESPIRATORY: Breath sounds equal bilaterally, no wheezes rales or rhonchi. ABDOMEN: Soft, nontender. Normoactive bowel sounds all 4 quadrants. No guarding or rebound. EXTREMITIES: Normal range of motion, no clubbing or edema. Neurovascularly intact NEUROLOGICAL: Alert and oriented x4. SKIN: Warm, dry, no laceration, no petechiae, no rashes or lesions. Scores HEART Score Heart Score history: Moderately Suspicious Heart Score EKG: Normal Heart Score Age: 45-64 years old Heart Score risk factors: > 3 risk factors or hx of atherosclerotic disease Heart Score troponin: < or = to normal limit Heart Score Total: 4 Course Orders Ordered: ED Orders 01/05/23 20:24 EKG-12 Lead Stat 01/05/23 20:28 Troponin I Stat 01/05/23 21:24 Urine Microscopic Stat 01/06/23 00:17 COVID19 -Nasal RAPID Stat Acetaminophen (Acetaminophen 325 Mg Tablet) 650 mg PO Q6H PRN PRN Reason: Fever/Mild Pain (1-3) Aspirin (Aspirin Ec 81 Mg Tablet) 81 mg PO DAILY [facility] Atorvastatin Calcium (Atorvastatin 20 Mg Tablet) 40 mg PO BEDTIME [facility] Enoxaparin Sodium (Enoxaparin 40 Mg/0.4 Ml Syringe) 40 mg SUBCUT DAILY [facility] Naloxone HCl (Naloxone 0.4 Mg/Ml Vial) 0.2 mg IV Q2MIN PRN PRN Reason: Opiate Reversal Ondansetron HCl (Ondansetron 4 Mg/2 Ml Inj) 4 mg IV Q8HR PRN PRN Reason: Nausea And Vomiting Sodium Chloride (Sodium Chloride 0.9% Flush) 10 ml IV PRN PRN PRN Reason: Flush Sodium Chloride (Sodium Chloride 0.9% Flush) 10 ml IV BID [facility] Discontinued Medications Acetaminophen (Acetaminophen 325 Mg Tablet) 650 mg PO NOW ONE Stop: 01/05/23 19:26 Last Admin: 01/05/23 19:30 Dose: 650 mg Documented By: JOCELYN Aspirin (Aspirin 81 Mg Chew Tab) 324 mg PO NOW ONE Stop: 01/05/23 18:04 Last Admin: 01/05/23 19:30 Dose: 324 mg Documented By: JOCELYN Vital Signs Vital signs: Vital Signs - 8 hr 01/05/23 20:30 01/05/23 21:00 01/05/23 21:30 Pulse Rate 78 70 73 Respiratory Rate 35 H 23 15 Blood Pressure Pulse Oximetry 97 96 97 Oxygen Delivery Method 01/05/23 22:00 01/05/23 22:13 01/05/23 22:13 Pulse Rate 76 75 Respiratory Rate 19 18 Blood Pressure 121/78 Pulse Oximetry 97 96 Oxygen Delivery Method Room Air 01/05/23 22:30 01/05/23 22:30 01/05/23 23:00 Pulse Rate 72 Respiratory Rate 21 Blood Pressure 132/93 H 139/88 Pulse Oximetry 98 Oxygen Delivery Method 01/05/23 23:00 01/05/23 23:30 01/05/23 23:30 Pulse Rate 75 72 Respiratory Rate 22 18 Blood Pressure 138/99 H Pulse Oximetry 96 96 Oxygen Delivery Method Room Air MDM - Chest Pain Lab Data 01/05/23 18:19 01/05/23 18:19 Labs: Lab Results 01/05/23 01/05/23 01/05/23 Range/Units 18:19 18:19 18:19 WBC 9.7 (4.5-11.0) X10^3/uL RBC 5.22 H (4.0-5.2) X10^6/uL Hgb 15.9 (12.0-16.0) g/dL Hct 46.7 H (36-46) % MCV 89.5 (80-100) fL MCH 30.5 (26-34) PG MCHC 34.1 (30-36) % RDW 14.1 (11.6-14.8) % Plt Count 265 (150-400) X10^3/uL Neut % (Auto) 69.4 (50-75) % Lymph % (Auto) 21.9 L (25-40) % Bledsoe % (Auto) 6.0 (3-14) % Eos % (Auto) 1.8 L (2-4) % Baso % (Auto) 0.9 (0-2) % Neut # (Auto) 6700 (6580-0244) /uL Lymph # (Auto) 2100 (1813-1096) /uL Bledsoe # (Auto) 600 (0-900) /uL Eos # (Auto) 200 (0-450) /uL Baso # (Auto) 100 (0-100) /uL PT 12.4 (10.1-12.7) SECONDS INR 1.1 (0.9-1.3) APTT 35 (26-36) SECONDS D-Dimer (<500) ng/ml Sodium 139 (137-145) mmol/L Potassium 3.8 (3.4-5.1) mmol/L Chloride 106 (98-107) mmol/L Carbon Dioxide 25 (22-32) mmol/L BUN 13 (7-17) mg/dL Creatinine 0.76 (0.52-1.04) mg/dL Estimated GFR > 60 (>60) mL/min BUN/Creatinine Ratio 17.1 (6-22) Glucose 126 H (70-100) mg/dL Calcium 9.1 (8.4-10.2) mg/dL Magnesium 1.9 (1.6-2.3) mg/dL Total Bilirubin 0.7 (0.2-1.3) mg/dL AST 40 H (14-36) IU/L ALT 63 H (<35) IU/L Alkaline Phosphatase 94 (38-126) U/L Total Creatine Kinase 123 (30-135) U/L CK-MB (CK-2) 1.86 (<2.37) ng/mL CK-MB (CK-2) Rel Index 1.5 (1.5-5.0) % Troponin I < 0.012 (0.01-0.034) ng/mL Total Protein 8.2 (6.3-8.2) g/dL Albumin 4.6 (3.5-5.0) g/dL Globulin 3.6 (1.7-4.1) g/dL Albumin/Globulin Ratio 1.3 (1.0-2.8) Lipase 149 (23-300) U/L Urine RBC (0-5/HPF) Urine WBC (0-5/HPF) Ur Squamous Epith Cells (0-5/HPF) Urine Bacteria (None) Ur Culture Indicated? SARS-CoV-2 (PCR) (Negative) 01/05/23 01/05/23 01/05/23 Range/Units 18:19 20:28 21:24 WBC (4.5-11.0) X10^3/uL RBC (4.0-5.2) X10^6/uL Hgb (12.0-16.0) g/dL Hct (36-46) % MCV (80-100) fL MCH (26-34) PG MCHC (30-36) % RDW (11.6-14.8) % Plt Count (150-400) X10^3/uL Neut % (Auto) (50-75) % Lymph % (Auto) (25-40) % Bledsoe % (Auto) (3-14) % Eos % (Auto) (2-4) % Baso % (Auto) (0-2) % Neut # (Auto) (9253-4294) /uL Lymph # (Auto) (1548-0773) /uL Bledsoe # (Auto) (0-900) /uL Eos # (Auto) (0-450) /uL Baso # (Auto) (0-100) /uL PT (10.1-12.7) SECONDS INR (0.9-1.3) APTT (26-36) SECONDS D-Dimer 308 (<500) ng/ml Sodium (137-145) mmol/L Potassium (3.4-5.1) mmol/L Chloride (98-107) mmol/L Carbon Dioxide (22-32) mmol/L BUN (7-17) mg/dL Creatinine (0.52-1.04) mg/dL Estimated GFR (>60) mL/min BUN/Creatinine Ratio (6-22) Glucose (70-100) mg/dL Calcium (8.4-10.2) mg/dL Magnesium (1.6-2.3) mg/dL Total Bilirubin (0.2-1.3) mg/dL AST (14-36) IU/L ALT (<35) IU/L Alkaline Phosphatase (38-126) U/L Total Creatine Kinase (30-135) U/L CK-MB (CK-2) (<2.37) ng/mL CK-MB (CK-2) Rel Index (1.5-5.0) % Troponin I < 0.012 (0.01-0.034) ng/mL Total Protein (6.3-8.2) g/dL Albumin (3.5-5.0) g/dL Globulin (1.7-4.1) g/dL Albumin/Globulin Ratio (1.0-2.8) Lipase (23-300) U/L Urine RBC None seen (0-5/HPF) Urine WBC None seen (0-5/HPF) Ur Squamous Epith Cells 0-1 /hpf (0-5/HPF) Urine Bacteria None seen (None) Ur Culture Indicated? Cult not indicated SARS-CoV-2 (PCR) (Negative) 01/05/23 Range/Units 23:42 WBC (4.5-11.0) X10^3/uL RBC (4.0-5.2) X10^6/uL Hgb (12.0-16.0) g/dL Hct (36-46) % MCV (80-100) fL MCH (26-34) PG MCHC (30-36) % RDW (11.6-14.8) % Plt Count (150-400) X10^3/uL Neut % (Auto) (50-75) % Lymph % (Auto) (25-40) % Bledsoe % (Auto) (3-14) % Eos % (Auto) (2-4) % Baso % (Auto) (0-2) % Neut # (Auto) (1225-5118) /uL Lymph # (Auto) (2551-8216) /uL Bledsoe # (Auto) (0-900) /uL Eos # (Auto) (0-450) /uL Baso # (Auto) (0-100) /uL PT (10.1-12.7) SECONDS INR (0.9-1.3) APTT (26-36) SECONDS D-Dimer (<500) ng/ml Sodium (137-145) mmol/L Potassium (3.4-5.1) mmol/L Chloride (98-107) mmol/L Carbon Dioxide (22-32) mmol/L BUN (7-17) mg/dL Creatinine (0.52-1.04) mg/dL Estimated GFR (>60) mL/min BUN/Creatinine Ratio (6-22) Glucose (70-100) mg/dL Calcium (8.4-10.2) mg/dL Magnesium (1.6-2.3) mg/dL Total Bilirubin (0.2-1.3) mg/dL AST (14-36) IU/L ALT (<35) IU/L Alkaline Phosphatase (38-126) U/L Total Creatine Kinase (30-135) U/L CK-MB (CK-2) (<2.37) ng/mL CK-MB (CK-2) Rel Index (1.5-5.0) % Troponin I (0.01-0.034) ng/mL Total Protein (6.3-8.2) g/dL Albumin (3.5-5.0) g/dL Globulin (1.7-4.1) g/dL Albumin/Globulin Ratio (1.0-2.8) Lipase (23-300) U/L Urine RBC (0-5/HPF) Urine WBC (0-5/HPF) Ur Squamous Epith Cells (0-5/HPF) Urine Bacteria (None) Ur Culture Indicated? SARS-CoV-2 (PCR) Negative (Negative) Urine Dip Bedside Urine Glucose Negative Bedside Urine Bilirubin - Negative Bedside Urine Ketone +/- 5 Urine Specific [place] 1.015 Bedside Urine Occult Blood - Negative Bedside Urine pH 6.0 Bedside Urine Protein + 30 Bedside Urine Urobilinogen - Negative Bedside Urine Nitrite - Negative Bedside Urine Leukocytes - Negative Esterase Imaging Data Chest x-ray: Radiologist's Impression: [address] [address] XRay Report Signed Patient: Ro Valentino MR#: [id number] : 1965 Acct:[id number] Age/Sex: 57 / F Date of Service: 01/05/23 Loc: ED Accession Number: [id number] ?? Procedure: XR chest 1V Ordering Provider: Pearl Patel D.O. PROCEDURE:? XR CHEST 1V ? INDICATIONS:? chest pain ? TECHNIQUE:? One view of the chest was acquired.? ? COMPARISON:? [facility], CR, XR CHEST 2V, 11/12/2021, 12:39. ? FINDINGS:? ? Surgical changes and devices:? None.? ? Lungs and pleura:? Lungs are clear.? No pleural effusions or pneumothorax.? ? Mediastinum:? Mediastinal contours appear normal.? Heart size is normal.? ? Bones and chest wall:? No suspicious bony lesions.? Overlying soft tissues appear unremarkable.? ? IMPRESSION:? No acute process. ? ? Dictated by: Evelin Seymour M.D. on 01/05/2023 at 18:15 ? ? ECG Data Interpretation: EKG 1. Sinus rhythm rate 89 DE interval 156 QRS 74 no T-wave inversions no ST elevation or depression mild wandering baseline MDM Narrative Medical decision making narrative: Patient 57-year-old female who presents with chest discomfort she describes a squeezing lasting 5-10 minutes causing diaphoresis. Radiated straight through to her back. She is no recurrence of pain. She is 2- troponins normal electrolytes no MEI no leukocytosis. She has cardiac risk factors of hypertension smoking family history age and being female. Heart score is a 4 which is immediate. She did receive aspirin then got headache so Tylenol. Patient also reports that she is had increasing GERD attacks however this feels nothing like that. However she does have a height hernia other possibilities include hiatal hernia spasm acid reflux acute coronary syndrome, pneumonia pneum othorax pulmonary embolism Dr. Pepe accepts patient Discharge Plan Departure Patient Disposition: Admitted as Observation Clinical Impression: Chest pain Admit Date/Time: 01/05/23 23:51 Admit Provider: Jason Pepe
[2023-01-05] MEDS: ACETAMINOPHEN 325 MG TABLET 650 MG PO (19:30)
[2023-01-05] MEDS: ASPIRIN 81 MG CHEW TAB 324 MG PO (19:30)
[2023-01-05 20:56] LABS: D Dimer 308 ng/ml (<500)
[2023-01-05 20:59] LABS: Troponin I < 0.012 ng/mL (0.01-0.034)
[2023-01-05 21:48] LABS: RBC Urine None Seen (0-5/HPF); WBC Urine None Seen (0-5/HPF)
[2023-01-05 21:49] LABS: Bacteria Urine None Seen; Culture Indicated Urine Cult Not Indicated; Squamous Epithelial Cell Urine 0-1 /HPF (0-5/HPF)
[2023-01-06] VITALS (9 sets, daily range): BP systolic 102–138; BP diastolic 63–85; PULSE 72–95; RESP 16–21; TEMP 35.9–36.4; O2SAT 95–98; BMI 41.6
--- NOTE | 2023-01-06 00:23 | PM.HP.1 ---
History of Present Illness History of Present Illness Date Patient Seen: 01/06/23 Time Patient Seen: 00:05 Chief complaint: chest pains, high blood pressure Narrative: Ms. Valentino is a 57W with PMH tobacco smoker, hypertension, reflux who presents with chest pain. She was at work, sitting, when she felt sudden onset squeezing chest pain. She noted the pain in the center of her chest and radiation to her back. She had some difficulty breathing with this. She had diaphoresis. The pain last approximately 5 minutes before improving. She has never had a stress test. She is trying to quit smoking, but still smokes a few cigarettes daily. Her father had an MA at the age of 60. She has reflux which is a different quality of pain. In the ED workup was done, vitals notable for afebrile, heart rate in the 90s, blood pressure 170s/110s, sats high 90s on room air. Labs notable for Na 139, creatinine 0.76. WBC 9.7, hgb 15.9. Trop negative x2. She was given aspirin and admitted for further treatment. Patient History Medical History Cervical spine disease (~1985) Chicken pox (~1998) Chronic back pain (~1985) Headache (~2011) Irregular menstrual cycle (~2015) Measles (~1969) MRSA (methicillin resistant Staphylococcus aureus) (~2003) Musculoskeletal disorder (~2011) Shoulder pain (~2011) Skin problem (~2011) Vision disorder Surgical History Anesthesia History of carpal tunnel release (~1985) History of carpal tunnel repair History of tonsillectomy Ovarian cyst (~1997) Status post bilateral salpingo-oophorectomy (BSO) (07/18/17) Status post cervical spinal fusion (~2012) Status post laparoscopic supracervical hysterectomy (07/18/17) Family & Social History Family History Father Heart disease Hypertension High cholesterol Stroke Mother Cancer Diabetes mellitus Family/Other Thyroid disease Grandfather No problems noted. Grandmother No problems noted. Grandfather No problems noted. Grandmother No problems noted. Sister Pacemaker Safety & Behavioral: Feels Safe in Current Yes Environment Been Physically Hurt or No Threatened By a Person Tobacco & Substance use: Smoking Status Current every day smoker alcohol intake current alcohol intake frequency a few times a week Substance Use Type does not use Meds Home Medications and Allergies Home Medications Medication Instructions Recorded Confirmed Type diphenhydramine HCl 25 mg capsule 25 mg PO BEDTIME 06/03/20 06/12/20 History (NightTime Sleep Aid (diphenhydramine)) nutritional supplement-fiber oral each PO 06/03/20 06/12/20 History liquid ondansetron 4 mg disintegrating 4 mg PO Q6H PRN nausea and 05/10/21 Rx tablet vomiting #14 tabs oxycodone-acetaminophen 5 mg-325 1 tab PO Q4-6H PRN pain #10 tabs 05/10/21 Rx mg tablet Allergies Allergy/AdvReac Type Severity Reaction Status Date / Time latex [LATEX] Allergy Intermediate RASH Verified 01/05/23 18:05 codeine [CODEINE] AdvReac Intermediate ABD PAIN Verified 01/05/23 18:05 acetaminophen [From VICODIN] AdvReac Mild NAUSEA Verified 01/05/23 18:05 hydrocodone [From VICODIN] AdvReac Mild NAUSEA Verified 01/05/23 18:05 Review of Systems Review of Systems Narrative: 14 systems reviewed and negative aside from what is noted in HPI Exam Vital Signs (past 8 hours): - 01/05/23 18:03 01/05/23 19:19 01/05/23 19:30 Temperature 97.8 F Pulse Rate 93 H 79 78 Respiratory Rate 18 35 H 22 Blood Pressure 175/110 H Pulse Oximetry 99 96 95 Oxygen Delivery Method Room Air 01/05/23 19:31 01/05/23 19:31 01/05/23 20:00 Temperature Pulse Rate 78 Respiratory Rate 27 H Blood Pressure 110/78 120/78 Pulse Oximetry 96 Oxygen Delivery Method Room Air 01/05/23 20:00 01/05/23 20:30 01/05/23 21:00 Temperature Pulse Rate 69 78 70 Respiratory Rate 19 35 H 23 Blood Pressure Pulse Oximetry 95 97 96 Oxygen Delivery Method 01/05/23 21:30 01/05/23 22:00 01/05/23 22:13 Temperature Pulse Rate 73 76 75 Respiratory Rate 15 19 18 Blood Pressure Pulse Oximetry 97 97 96 Oxygen Delivery Method Room Air 01/05/23 22:13 01/05/23 22:30 01/05/23 22:30 Temperature Pulse Rate 72 Respiratory Rate 21 Blood Pressure 121/78 132/93 H Pulse Oximetry 98 Oxygen Delivery Method 01/05/23 23:00 01/05/23 23:00 01/05/23 23:30 Temperature Pulse Rate 75 Respiratory Rate 22 Blood Pressure 139/88 138/99 H Pulse Oximetry 96 Oxygen Delivery Method 01/05/23 23:30 01/06/23 00:00 01/06/23 00:00 Temperature Pulse Rate 72 73 Respiratory Rate 18 21 Blood Pressure 138/75 Pulse Oximetry 96 Oxygen Delivery Method Room Air Oxygen Delivery Method Room Air Narrative Exam Narrative: GEN: no acute distress HEENT: moist mucous membranes, PERRL NECK: trachea midline, no JVD PULM: clear bilaterally, no wheezes, rhonchi, rales CV: regular rate and rhythm, no murmurs ABD: soft, nontender, nondistended, no organomegaly EXT: warm and well perfused with no edema NEURO: awake, alert, oriented, with no focal deficits Objective Labs 01/05/23 18:19 01/05/23 18:19 Labs: Laboratory Results - last 24 hr 01/05/23 01/05/23 01/05/23 18:19 18:19 18:19 WBC 9.7 RBC 5.22 H Hgb 15.9 Hct 46.7 H MCV 89.5 MCH 30.5 MCHC 34.1 RDW 14.1 Plt Count 265 Neut % (Auto) 69.4 Lymph % (Auto) 21.9 L [place] % (Auto) 6.0 Eos % (Auto) 1.8 L Baso % (Auto) 0.9 Neut # (Auto) 6700 Lymph # (Auto) 2100 [place] # (Auto) 600 Eos # (Auto) 200 Baso # (Auto) 100 PT 12.4 INR 1.1 APTT 35 D-Dimer Sodium 139 Potassium 3.8 Chloride 106 Carbon Dioxide 25 BUN 13 Creatinine 0.76 Estimated GFR > 60 BUN/Creatinine Ratio 17.1 Glucose 126 H Calcium 9.1 Magnesium 1.9 Total Bilirubin 0.7 AST 40 H ALT 63 H Alkaline Phosphatase 94 Total Creatine Kinase 123 CK-MB (CK-2) 1.86 CK-MB (CK-2) Rel Index 1.5 Troponin I < 0.012 Total Protein 8.2 Albumin 4.6 Globulin 3.6 Albumin/Globulin Ratio 1.3 Lipase 149 Urine RBC Urine WBC Ur Squamous Epith Cells Urine Bacteria Ur Culture Indicated? 01/05/23 01/05/23 01/05/23 18:19 20:28 21:24 WBC RBC Hgb Hct MCV MCH MCHC RDW Plt Count Neut % (Auto) Lymph % (Auto) [place] % (Auto) Eos % (Auto) Baso % (Auto) Neut # (Auto) Lymph # (Auto) [place] # (Auto) Eos # (Auto) Baso # (Auto) PT INR APTT D-Dimer 308 Sodium Potassium Chloride Carbon Dioxide BUN Creatinine Estimated GFR BUN/Creatinine Ratio Glucose Calcium Magnesium Total Bilirubin AST ALT Alkaline Phosphatase Total Creatine Kinase CK-MB (CK-2) CK-MB (CK-2) Rel Index Troponin I < 0.012 Total Protein Albumin Globulin Albumin/Globulin Ratio Lipase Urine RBC None seen Urine WBC None seen Ur Squamous Epith Cells 0-1 /hpf Urine Bacteria None seen Ur Culture Indicated? Cult not indicated Assessment & Plan Assessment & Plan narrative: 1. Chest pain -HEART score of 4, intermediate -EKG showed no acute process -troponins negative x2, will check a third -ordered for aspirin, statin for now -plan for exercise stress test in AM 2. Transaminitis -mild, recheck in AM I have discussed the plan with the patient. I have discussed plan of care with ED physician and bedside nurse. I have reviewed, labs, ekg, and chest xray. CODE: Full Proxy: Shahla Valentino, daughter Time Spent With Patient Critical Care time: I spent a total of [] minutes of critical care time on this patient's care today; this time is exclusive of procedural time. Quality [facility] - Meds 'Current medications' to include all prescriptions, ykcg-lra-kdxyood products, herbals, cannabis/cannabidiol products, and vitamin/mineral/dietary (nutritional) supplements. I have utilized all available resources to obtain, update, or review the patient?s current medications. [If Yes, STOP here]: Yes
--- NOTE | 2023-01-06 00:26 | DI.NM.S_ITS ---
PROCEDURE: NM EXERCISE TREADMILL NON NUC COMPARISON: None INDICATIONS: Chest pain FINDINGS: Rest ECG sinus rhythm. Sagar protocol 6:20, maximum heart rate 151 bpm (92% peak predicted), maximum blood pressure 158/80, 7.0 METS, DEONTE +12%. Exercise ECG sinus tachycardia, no ST segment changes, ectopy or arrhythmias. Patient complained of mild chest tightness with exertion. IMPRESSION: Low risk study. No evidence of exercise-induced ischemia or arrhythmia. Normal hemodynamic response. Slightly reduced exercise capacity. Dictated by: Amanda Samuel D.O. on 01/06/2023 at 16:24 Approved by: Amanda Samuel D.O. on 01/06/2023 at 16:26
[2023-01-06 00:34] LABS: COVID19 -Nasal RAPID Negative (Negative)
--- NOTE | 2023-01-06 01:27 | PC.NURSE ---
0025 Pt. admitted from ER, denies any CP @ this time. Scheduled for an exercise treadmill NON NUC urgent in the morning. Informed that she can not have any caffeine prior to her test. Oriented to her room, showed how to use her call light, TV & bed controls. Will continue Plan of Care & monitor.
[2023-01-06 05:42] LABS: Add Manual Diff / Slide Review NO; Basophils Absolute Auto 100 /uL (0-100); Basophils Percent Auto 1.1 % (0-2); Eosinophils Absolute Auto 300 /uL (0-450); Hematocrit 42.2 % (36-46); Hemoglobin 14.4 g/dL (12.0-16.0); Lymphocytes Absolute Auto 2700 /uL (1100-4500); Lymphocytes Percent Auto 31.2 % (25-40); Mean Corpuscular Hemoglobin 30.5 PG (26-34); Mean Corpuscular Volume 89.7 fL (80-100); Monocytes Absolute Auto 900 /uL (0-900); Neutrophils Absolute Auto 4700 /uL (1500-7000); Neutrophils Percent Auto 54.7 % (50-75); Platelet Count 257 X10^3/uL (150-400); Red Blood Cell Count 4.71 X10^6/uL (4.0-5.2); White Blood Cell Count 8.6 X10^3/uL (4.5-11.0)
[2023-01-06 05:50] LABS: Alanine Aminotransferase 50 IU/L (<35); Albumin 3.6 g/dL (3.5-5.0); Albumin Globulin Ratio 1.2 (1.0-2.8); Alkaline Phosphatase 75 U/L (38-126); Aspartate Aminotransferase 34 IU/L (14-36); Bilirubin Total 0.5 mg/dL (0.2-1.3); Bilirubin Unconjugated 0.2 mg/dL (0.0-1.1); Globulin 2.9 g/dL (1.7-4.1); HEMOLYSIS < 15 (0-50); Total Protein 6.5 g/dL (6.3-8.2)
[2023-01-06 05:51] LABS: Blood Urea Nitrogen 16 mg/dL (7-17); Calcium 8.6 mg/dL (8.4-10.2); Carbon Dioxide 27 mmol/L (22-32); Chloride 105 mmol/L (98-107); Estimated Glomerular Filt Rate > 60 mL/min (>60); Glucose 133 mg/dL (70-100); HEMOLYSIS < 15 (0-50); Potassium 3.6 mmol/L (3.4-5.1); Sodium 139 mmol/L (137-145)
[2023-01-06] MEDS: ENOXAPARIN 40 MG/0.4 ML SYRINGE SUBCUT (08:58)
[2023-01-06] MEDS: ASPIRIN EC 81 MG TABLET PO (08:58)
[2023-01-06] MEDS: SODIUM CHLORIDE 0.9% FLUSH 10 ML IV (09:39)
[2023-01-06] MEDS: ACETAMINOPHEN 325 MG TABLET 650 MG PO (11:43)
--- NOTE | 2023-01-06 12:45 | CM.DANOTE ---
Initial DCP Assessment Note Pt is a 57 yo female, resident of [place]. Presents from work after experiencing chest pain admitted for further treatment and scheduled for an urgent exercise treadmill NON stress test this morning PCP: Sarahi Brown Payer: Murali/Nghia VICKERS Reviewed chart, met w/patient and her daughter at bedside this morning to introduce self and role Patient admits she is eager to discharge home and expects no needs, family to assist as needed No barriers identified at this time to patient's safe discharge home w/family to assist; close outpatient f/u recommended. MIGUEL Viveros Discharge Planning/Care Management CM Discharge Assessment Start: 01/06/23 12:41 Freq: Status: Active Protocol: Document 01/06/23 12:41 PAOLA (Rec: 01/06/23 12:45 PAOLA [id number]) Discharge Planning Assessment Assigned Rn Urology MIGUEL Caruso DPOA/Assigned Designee Name Shahla Valentino, daughter ( Andres) Contact Information [phone] Advance Directives? No History Provided By Patient,Family Member Prior Living Arrangements House Household Members none Type of transporation used prior to Drives own vehicle admit Independent with ADL's Yes Is patient alert and oriented? Yes Barriers to Discharge No Comment Patient is eager to return home after stress test. Daughter to transport Discharge Plan Home Transportation Arrangement Family Referrals Initiated None needed Whiteboard Updated in Patient Room with Yes name and ext. # of Rn Urology
--- NOTE | 2023-01-06 16:35 | P.DS_ITS ---
History of Present Illness History of Present Illness Date Patient Seen: 01/06/23 Time Patient Seen: 00:05 Chief complaint: chest pains, high blood pressure Narrative: Ms. Valentino is a 57W with H tobacco smoker, hypertension, reflux who presents with chest pain. She was at work, sitting, when she felt sudden onset squeezing chest pain. She noted the pain in the center of her chest and radiation to her back. She had some difficulty breathing with this. She had diaphoresis. The pain last approximately 5 minutes before improving. She has never had a stress test. She is trying to quit smoking, but still smokes a few cigarettes daily. Her father had an WI at the age of 60. She has reflux which is a different quality of pain. In the ED workup was done, vitals notable for afebrile, heart rate in the 90s, blood pressure 170s/110s, sats high 90s on room air. Labs notable for Na 139, creatinine 0.76. WBC 9.7, hgb 15.9. Trop negative x2. She was given aspirin and admitted for further treatment. Discharge Providers Provider Date of admission: 01/05/23 23:51 Discharge Date: 01/06/23 Primary care physician: Sarahi Brown ND Consults: None Discharge provider: Johnny Burnham MD Summary Hospital Course Discharge Diagnosis: Atypical Chest Pain with normal Stress test. Hospital Course: The patient was admitted with atypical chest pain which was resolved upon arrival. The patient had negative ECG troponins. She underwent a stress test which was read as low risk. The patient was counseled to pursue ongoing smoking cessation and relaxation practices as well as exercise. She is encouraged to follow-up with his primary care provider within the next week. The patient has been off her blood pressure medications for about a year due to lack of insurance coverage. Her blood pressures were fairly normal here, she will continue to stay off these until follow up with her primary care. Status at Discharge Cognitive/behavioral status at discharge: oriented Functional status at discharge: independent ambulation Overall status at discharge: patient is back to baseline Time Spent with Patient Time spent: Greater than 30 minutes Exam Vital Signs (past 8 hours): - 01/06/23 11:39 01/06/23 09:00 01/06/23 13:00 Temperature 96.6 F L Pulse Rate 95 H Respiratory Rate 20 Blood Pressure 120/83 Pulse Oximetry 96 97 97 Oxygen Delivery Method Room Air Room Air Oxygen Flow Rate 0 01/06/23 16:15 Temperature 97.6 F Pulse Rate 74 Respiratory Rate 18 Blood Pressure 138/85 Pulse Oximetry 97 Oxygen Delivery Method Oxygen Flow Rate 0 Oxygen Delivery Method Room Air Oxygen Flow Rate 0 Narrative Exam Narrative: GEN: no acute distress HEENT: moist mucous membranes, PERRL NECK: trachea midline, no JVD PULM: clear bilaterally, no wheezes, rhonchi, rales CV: regular rate and rhythm, no murmurs ABD: soft, nontender, nondistended EXT: no edema Objective Imaging Stress test: Radiologist's impression: Normal, low risk study. Labs 01/06/23 05:11 01/06/23 05:11 Labs: Laboratory Results - last 24 hr 01/05/23 01/05/23 01/05/23 18:19 18:19 18:19 WBC 9.7 RBC 5.22 H Hgb 15.9 Hct 46.7 H MCV 89.5 MCH 30.5 MCHC 34.1 RDW 14.1 Plt Count 265 Neut % (Auto) 69.4 Lymph % (Auto) 21.9 L [place] % (Auto) 6.0 Eos % (Auto) 1.8 L Baso % (Auto) 0.9 Neut # (Auto) 6700 Lymph # (Auto) 2100 [place] # (Auto) 600 Eos # (Auto) 200 Baso # (Auto) 100 PT 12.4 INR 1.1 APTT 35 D-Dimer Sodium 139 Potassium 3.8 Chloride 106 Carbon Dioxide 25 BUN 13 Creatinine 0.76 Estimated GFR > 60 BUN/Creatinine Ratio 17.1 Glucose 126 H Calcium 9.1 Magnesium 1.9 Total Bilirubin 0.7 Conjugated Bilirubin Unconjugated Bilirubin AST 40 H ALT 63 H Alkaline Phosphatase 94 Total Creatine Kinase 123 CK-MB (CK-2) 1.86 CK-MB (CK-2) Rel Index 1.5 Troponin I < 0.012 Total Protein 8.2 Albumin 4.6 Globulin 3.6 Albumin/Globulin Ratio 1.3 Lipase 149 Urine RBC Urine WBC Ur Squamous Epith Cells Urine Bacteria Ur Culture Indicated? SARS-CoV-2 (PCR) 01/05/23 01/05/23 01/05/23 18:19 20:28 21:24 WBC RBC Hgb Hct MCV MCH MCHC RDW Plt Count Neut % (Auto) Lymph % (Auto) [place] % (Auto) Eos % (Auto) Baso % (Auto) Neut # (Auto) Lymph # (Auto) [place] # (Auto) Eos # (Auto) Baso # (Auto) PT INR APTT D-Dimer 308 Sodium Potassium Chloride Carbon Dioxide BUN Creatinine Estimated GFR BUN/Creatinine Ratio Glucose Calcium Magnesium Total Bilirubin Conjugated Bilirubin Unconjugated Bilirubin AST ALT Alkaline Phosphatase Total Creatine Kinase CK-MB (CK-2) CK-MB (CK-2) Rel Index Troponin I < 0.012 Total Protein Albumin Globulin Albumin/Globulin Ratio Lipase Urine RBC None seen Urine WBC None seen Ur Squamous Epith Cells 0-1 /hpf Urine Bacteria None seen Ur Culture Indicated? Cult not indicated SARS-CoV-2 (PCR) 01/05/23 01/06/23 01/06/23 23:42 05:11 05:11 WBC 8.6 RBC 4.71 Hgb 14.4 Hct 42.2 MCV 89.7 MCH 30.5 MCHC 34.0 RDW 14.0 Plt Count 257 Neut % (Auto) 54.7 Lymph % (Auto) 31.2 [place] % (Auto) 10.0 Eos % (Auto) 3.0 Baso % (Auto) 1.1 Neut # (Auto) 4700 Lymph # (Auto) 2700 [place] # (Auto) 900 Eos # (Auto) 300 Baso # (Auto) 100 PT INR APTT D-Dimer Sodium 139 Potassium 3.6 Chloride 105 Carbon Dioxide 27 BUN 16 Creatinine 0.80 Estimated GFR > 60 BUN/Creatinine Ratio 20.0 Glucose 133 H Calcium 8.6 Magnesium Total Bilirubin Conjugated Bilirubin Unconjugated Bilirubin AST ALT Alkaline Phosphatase Total Creatine Kinase CK-MB (CK-2) CK-MB (CK-2) Rel Index Troponin I Total Protein Albumin Globulin Albumin/Globulin Ratio Lipase Urine RBC Urine WBC Ur Squamous Epith Cells Urine Bacteria Ur Culture Indicated? SARS-CoV-2 (PCR) Negative 01/06/23 05:11 WBC RBC Hgb Hct MCV MCH MCHC RDW Plt Count Neut % (Auto) Lymph % (Auto) [place] % (Auto) Eos % (Auto) Baso % (Auto) Neut # (Auto) Lymph # (Auto) [place] # (Auto) Eos # (Auto) Baso # (Auto) PT INR APTT D-Dimer Sodium Potassium Chloride Carbon Dioxide BUN Creatinine Estimated GFR BUN/Creatinine Ratio Glucose Calcium Magnesium Total Bilirubin 0.5 Conjugated Bilirubin 0.0 Unconjugated Bilirubin 0.2 AST 34 ALT 50 H Alkaline Phosphatase 75 Total Creatine Kinase CK-MB (CK-2) CK-MB (CK-2) Rel Index Troponin I Total Protein 6.5 Albumin 3.6 Globulin 2.9 Albumin/Globulin Ratio 1.2 Lipase Urine RBC Urine WBC Ur Squamous Epith Cells Urine Bacteria Ur Culture Indicated? SARS-CoV-2 (PCR) [facility] Medical History (Updated 01/06/23 @ 00:57 by Gisella Mazariegos DO) Cervical spine disease (~1985) Chicken pox (~1998) Chronic back pain (~1985) Headache (~2011) Irregular menstrual cycle (~2015) Measles (~1969) MRSA (methicillin resistant Staphylococcus aureus) (~2003) Musculoskeletal disorder (~2011) Shoulder pain (~2011) Skin problem (~2011) Vision disorder Surgical History Anesthesia History of carpal tunnel release (~1985) History of carpal tunnel repair History of tonsillectomy Ovarian cyst (~1997) Status post bilateral salpingo-oophorectomy (BSO) (07/18/17) Status post cervical spinal fusion (~2012) Status post laparoscopic supracervical hysterectomy (07/18/17) Family History Father Heart disease Hypertension High cholesterol Stroke Mother Cancer Diabetes mellitus Family/Other Thyroid disease Grandfather No problems noted. Grandmother No problems noted. Grandfather No problems noted. Grandmother No problems noted. Sister Pacemaker Social History household members: none pets and animals: Yes education level: college occupational status: employed seatbelt use: always helmet use: Yes water heater temp set < 120 deg: Yes working smoke detector in home: Yes fire extinguisher in home: Yes carbon monox detector in home: Yes firearms in home: Yes firearms unloaded and locked: Yes Smoking Status: Current every day smoker alcohol intake: current substance use type: does not use during the past year weight has: other well-balanced diet: daily or most days daily servings fruits/ve-4 caffeine: Yes (1-2 caffeine drinks per day) eating out: other frequency: 5-6 times per week duration: 30-45 minutes/day Discharge Assessment & Plan Assessment and Plan Assessment: Atypical Chest pain Hypertension, untreated. Plan of Treatment: Close PCP follow up, reassess blood pressure. Discharge Plan Discharge Plan Patient Disposition: Home Provider Discharge Comment: Close follow up with PCP Discharge orders & Medications Prescriptions: No Action No Known Home Medications Rx Instructions: Pt. states I'm not taking any medication at home. Medication counseling provided by Pharmacist: No Follow up/Referrals: Sarahi Brown ND [Primary Care Provider] - Diet/Activity/Treatments Diet: Diet as Tolerated Activity: Activity as tolerated. Skin/Wound/Dressing Care Report to your healthcare provider any signs of infection, such as:: increased pain Visit Report/Discharge Packet Instructions: DI for Atypical Chest Pain, DI for Chest Pain Stand Alone Forms: Patient Portal/API Discharge Data Primary Care Provider: Sarahi Brown Attending Provider: Jason Pepe VTE Deep Vein Thrombosis/Pulmonary Embolism Present on Admission: No
== END 2023-01-06 17:00 | disposition home or self-care (01) ==
LOC: ED 18:59 → AC 23:52
PROVIDERS: Emergency Medicine; Admitting Provider Internal Medicine; Emergency Provider Emergency Medicine; PCP Acupuncturist; Visit Provider Internal Medicine
DX: R07.89 Other chest pain (principal); I10 Essential (primary) hypertension; R61 Generalized hyperhidrosis; R74.01 Elevation of levels of liver transaminase levels; K21.9 Gastro-esophageal reflux disease without esophagitis; F17.210 Nicotine dependence, cigarettes, uncomplicated
CPT/HCPCS: 36415; 71045; 80048; 80053; 80076; 81003; 81015; 82550; 82553; 83690; 83735; 84484; 85025; 85379; 85610; 85730; 87635; 93005; 93010; 93017; 96372; 99284; C9803; G0378; J1650

== ENCOUNTER → 2024-01-05 14:46 | Outpatient (CLI) | payer OTHER, SELFPAY ==
[2023-01-06 00:25] VITALS: BMI 41.6
--- NOTE | 2024-01-05 14:49 | DI.US.S_ITS ---
PROCEDURE: US ABDOMEN COMPLETE INDICATIONS: Abnormal results of liver function studies, abd pa TECHNIQUE: Real-time scanning was performed of the abdominal and retroperitoneal organs, with image documentation. COMPARISON: [facility], US, ABDOMEN COMPLETE, 09/11/2016, 21:59. FINDINGS: Liver: The liver measures 14.1 cm in length and demonstrates increased echogenicity. There is hepatopetal flow of the main portal vein. Gallbladder: The gallbladder wall measures 1.8 mm in diameter. No stones, sludge, pericholecystic fluid, or sonographic Melgar sign. Biliary ducts: Intrahepatic bile ducts are non-dilated. Extrahepatic bile duct caliber measures 3.4 mm. Normal is 6-7 mm or less in diameter, or 10 mm or less post-cholecystectomy. Pancreas: Visualized portions of the pancreas are sonographically normal. The tail the pancreas is not visualized due to bowel gas. Spleen: Spleen is normal in size and homogeneous in echotexture. Kidneys: Kidneys are normal in size and echotexture. Right kidney measures 11.4 cm long; left kidney measures 11.6 cm long. No hydronephrosis or nephrolithiasis. No solid masses. Aorta: Visualized aorta is normal in caliber at less than 3 cm. Iliacs: Proximal common iliac arteries are normal in caliber at less than 2.5 cm. IVC: Intrahepatic inferior vena cava is patent. Miscellaneous: No free abdominal fluid. IMPRESSION: 1. Increased hepatic echogenicity noted likely related to fatty infiltration of the liver but other sources of hepatocellular disease cannot be excluded. 2. No cholelithiasis or findings to suggest choledocholithiasis or acute cholecystitis. Dictated by: Tracy Houser M.D. on 01/05/2024 at 17:08 Approved by: Tracy Houser M.D. on 01/05/2024 at 17:10
== END ==
PROVIDERS: PCP Naturopath; Referring Provider Naturopath; Visit Provider Naturopath
DX: R10.9 Unspecified abdominal pain (principal); R94.5 Abnormal results of liver function studies
CPT/HCPCS: 76700